=== PATIENT | female | born 1955 | race Caucasian/White ===

== ENCOUNTER 2022-12-27 19:44 | Inpatient (IN) | payer MEDICAID, MEDICARE, OTHER ==
[~2022-12-27 19:44] MED LIST: Pantoprazole 40 MG Tab.CR PO SCH
[2022-12-27] MEDS ORDERED: Sodium Chloride 0.9% 500 ML IV ONE ×2 (19:58→21:18)
[2022-12-27] MEDS: Sodium Chloride 0.9% 10 ML Syringe FLUSH PRN (19:58)
[2022-12-27] MEDS ORDERED: Acetaminophen 500 MG Tab PO ONE (20:13)
[2022-12-27 20:32] LABS: ESTIMATED GFR 62 mL/min (>60)
[2022-12-27 21:09] LABS: CORONAVIRUS COVID-19 NAA NEGATIVE (NEGATIVE)
[2022-12-27] MEDS ORDERED: cefTRIAXone 2 GM Vial IVPUSH ONE (21:19)
[2022-12-27] MEDS ORDERED: Potassium Chloride 20 MEQ Tab.ER PO ONE (21:21)
[2022-12-27] MEDS: Sodium Chloride 0.9% 1,000 ML IV SCH ×2 (21:28→22:12)
[2022-12-27] MEDS ORDERED: Acetaminophen 325 MG Tab PO PRN (23:14)
[2022-12-27] MEDS ORDERED: Ondansetron 4 MG/2 ML SDV IV PRN (23:14)
[2022-12-27] MEDS ORDERED: Glucagon,Human Recombinant 1 MG Vial IM PRN (23:21)
[2022-12-27] MEDS ORDERED: 50% Dextrose in Water 50 ML Syringe IVPUSH PRN (23:21)
[2022-12-28] MEDS: Enoxaparin 40 MG/0.4 ML Syringe SUBCUT SCH ×2 (00:04→21:26)
[2022-12-28] MEDS: Pantoprazole 40 MG Vial IVPUSH SCH ×3 (00:09→21:27)
[2022-12-28] MEDS: Sodium Chloride 0.9% 1,000 ML IV SCH ×3 (05:00→20:00)
[2022-12-28 06:37] LABS: ESTIMATED GFR 71 mL/min (>60)
[2022-12-28] MEDS ORDERED: Insulin Lispro 100 Unit/ML 3 ML KwikPen SUBCUT ONE (08:20)
[2022-12-28] MEDS: Insulin Lispro 100 Unit/ML 3 ML KwikPen SUBCUT SCH ×4 (08:26→21:42)
[2022-12-28] MEDS ORDERED: Albuterol 8 GM Inhaler INH PRN (09:43)
[2022-12-28] MEDS: cefTRIAXone 1 GM Vial IVPUSH SCH ×2 (09:57→21:33)
[2022-12-28] MEDS: Celecoxib 200 MG Cap PO SCH (10:34)
[2022-12-28] MEDS: Hydrochlorothiazide 25 MG Tab PO SCH (10:34)
[2022-12-28] MEDS: metFORMIN 1,000 MG Tab PO SCH ×2 (10:35→21:25)
[2022-12-28] MEDS: Cetirizine 10 MG Tab PO SCH (10:35)
[2022-12-28] MEDS: Losartan 25 MG Tab PO SCH (10:35)
[2022-12-28] MEDS: Calcium Carbonate 500 MG Tablet PO SCH ×2 (10:35→21:25)
[2022-12-28] MEDS: Gabapentin 300 MG Cap PO SCH ×3 (10:49→21:26)
[2022-12-28] MEDS: Aspirin 81 MG Tab.EC PO SCH (21:26)
[2022-12-28] MEDS: atorvaSTATin 10 MG Tab PO SCH (21:26)
[2022-12-29] MEDS: Sodium Chloride 0.9% 1,000 ML IV SCH (02:46)
[2022-12-29 07:21] LABS: ESTIMATED GFR 71 mL/min (>60)
[2022-12-29] MEDS: Insulin Lispro 100 Unit/ML 3 ML KwikPen SUBCUT SCH ×4 (08:51→21:37)
[2022-12-29] MEDS: Celecoxib 200 MG Cap PO SCH (08:52)
[2022-12-29] MEDS: metFORMIN 1,000 MG Tab PO SCH ×2 (08:52→20:52)
[2022-12-29] MEDS: Calcium Carbonate 500 MG Tablet PO SCH ×2 (08:53→20:51)
[2022-12-29] MEDS: Cetirizine 10 MG Tab PO SCH (08:53)
[2022-12-29] MEDS: Pantoprazole 40 MG Vial IVPUSH SCH ×2 (08:54→20:54)
[2022-12-29] MEDS ORDERED: RABEPRAZOLE SODIUM 20 MG PO SCH (09:00)
[2022-12-29] MEDS: Hydrochlorothiazide 25 MG Tab PO SCH (09:04)
[2022-12-29] MEDS: Losartan 25 MG Tab PO SCH (09:05)
[2022-12-29] MEDS: Gabapentin 300 MG Cap PO SCH ×3 (09:06→20:51)
[2022-12-29] MEDS: cefTRIAXone 1 GM Vial IVPUSH SCH ×2 (09:06→20:54)
[2022-12-29] MEDS: Potassium Chloride 20 MEQ Tab.ER PO SCH ×2 (10:27→20:55)
[2022-12-29] MEDS: Aspirin 81 MG Tab.EC PO SCH (20:52)
[2022-12-29] MEDS: Enoxaparin 40 MG/0.4 ML Syringe SUBCUT SCH (20:53)
[2022-12-29] MEDS: atorvaSTATin 10 MG Tab PO SCH (20:53)
[2022-12-29] MEDS: Sodium Chloride 0.9% 10 ML Syringe FLUSH PRN ×2 (20:54→20:58)
[2022-12-29] MEDS: Saccharomyces Boulardii (Probiotic) 250 MG Cap PO SCH (21:10)
[2022-12-30 06:56] LABS: ESTIMATED GFR 81 mL/min (>60)
[2022-12-30] MEDS: Insulin Lispro 100 Unit/ML 3 ML KwikPen SUBCUT SCH ×4 (08:36→21:22)
[2022-12-30] MEDS: metFORMIN 1,000 MG Tab PO SCH ×2 (08:37→21:20)
[2022-12-30] MEDS: Cetirizine 10 MG Tab PO SCH (08:37)
[2022-12-30] MEDS: Gabapentin 300 MG Cap PO SCH ×3 (08:37→21:28)
[2022-12-30] MEDS: Celecoxib 200 MG Cap PO SCH (08:37)
[2022-12-30] MEDS: Calcium Carbonate 500 MG Tablet PO SCH ×2 (08:37→21:21)
[2022-12-30] MEDS: Saccharomyces Boulardii (Probiotic) 250 MG Cap PO SCH ×2 (08:37→21:20)
[2022-12-30] MEDS: Potassium Chloride 20 MEQ Tab.ER PO SCH (08:37)
[2022-12-30] MEDS: Losartan 25 MG Tab PO SCH (08:38)
[2022-12-30] MEDS: Sodium Chloride 0.9% 10 ML Syringe FLUSH PRN ×2 (08:41→21:37)
[2022-12-30] MEDS: cefTRIAXone 1 GM Vial IVPUSH SCH ×2 (08:42→21:37)
[2022-12-30] MEDS: Pantoprazole 40 MG Tab.CR PO SCH (11:21)
[2022-12-30] MEDS: Pantoprazole 40 MG Vial IVPUSH SCH (11:57)
[2022-12-30] MEDS: Aspirin 81 MG Tab.EC PO SCH (21:21)
[2022-12-30] MEDS: atorvaSTATin 10 MG Tab PO SCH (21:21)
[2022-12-30] MEDS: Enoxaparin 40 MG/0.4 ML Syringe SUBCUT SCH (21:26)
[2022-12-31] MEDS: Pantoprazole 40 MG Tab.CR PO SCH (05:42)
[2022-12-31 07:23] LABS: ESTIMATED GFR 95 mL/min (>60)
[2022-12-31] MEDS: Saccharomyces Boulardii (Probiotic) 250 MG Cap PO SCH (09:34)
[2022-12-31] MEDS: Cetirizine 10 MG Tab PO SCH (09:34)
[2022-12-31] MEDS: Gabapentin 300 MG Cap PO SCH ×2 (09:34→14:50)
[2022-12-31] MEDS: Celecoxib 200 MG Cap PO SCH (09:35)
[2022-12-31] MEDS: Calcium Carbonate 500 MG Tablet PO SCH (09:36)
[2022-12-31] MEDS: metFORMIN 1,000 MG Tab PO SCH (09:36)
[2022-12-31] MEDS: Losartan 25 MG Tab PO SCH (09:37)
[2022-12-31] MEDS: cefTRIAXone 1 GM Vial IVPUSH SCH (09:38)
[2022-12-31] MEDS: Insulin Lispro 100 Unit/ML 3 ML KwikPen SUBCUT SCH ×3 (09:45→17:16)
[2022-12-31] MEDS ORDERED: Iopamidol 755 Mg/ML 100 ML Bottle IV ONE (13:52)
[2022-12-31] MEDS ORDERED: ceFAZolin 2 GM Vial IVPUSH SCH (21:00)
== END 2022-12-31 19:55 | DRG 690 ==
LOC: FB.ED 19:44 → FB.MS 23:10 → OBSVTOIN 12-28 09:07
PROVIDERS: ADMIT Emergency Medicine; ATTEND Family Medicine
DX: N12 Tubulo-interstitial nephritis, not specified as acute or chronic (principal); R78.81 Bacteremia; Z68.43 Body mass index [BMI] 50.0-59.9, adult; E11.65 Type 2 diabetes mellitus with hyperglycemia; Z20.822 Contact with and (suspected) exposure to COVID-19; I10 Essential (primary) hypertension; G47.33 Obstructive sleep apnea (adult) (pediatric); K21.9 Gastro-esophageal reflux disease without esophagitis; E87.6 Hypokalemia; J43.9 Emphysema, unspecified; E78.49 Other hyperlipidemia; Z96.652 Presence of left artificial knee joint; E66.01 Morbid (severe) obesity due to excess calories; Z79.52 Long term (current) use of systemic steroids; Z79.82 Long term (current) use of aspirin; Z79.899 Other long term (current) drug therapy; Z79.1 Long term (current) use of non-steroidal anti-inflammatories (NSAID); Z87.81 Personal history of (healed) traumatic fracture; Z90.49 Acquired absence of other specified parts of digestive tract; Z98.890 Other specified postprocedural states; Z87.891 Personal history of nicotine dependence
CPT/HCPCS: 0241U; 36415; 70450; 71045; 72126; 72132; 74177; 80048; 80053; 81001; 82947; 83605; 83735; 84484; 85025; 86140; 87040; 87077; 87086; 87088; 87186; 93005; 93010; 94150; 96361; 96372; 96374; 96375; 99223; 99232; 99239; 99284; 99285; A9270-GY; C9113; G0378; J0696; J1650; J1815; J3490; J7030; J7040; Q9967